=== PATIENT | male | born 1950 | race Two or more races ===

== ENCOUNTER 2020-10-20 15:08 | Inpatient (IN) | payer MEDICARE, BC ==
[~2020-10-20] VITALS: Ht 177.8 cm; Wt 74.1 kg
[2020-10-20 16:38] LABS: BASOPHILS # (AUTO) 0.1 X10'3 (0-0.2); BASOPHILS % (AUTO) 0.6 % (0-1); EOSINOPHILS # (AUTO) 0.1 X10'3 (0-0.9); EOSINOPHILS % (AUTO) 0.7 % (0-6); HEMATOCRIT 45.9 % (42.0-52.0); HEMOGLOBIN 15.7 g/dl (14.0-17.9); LYMPHOCYTES # (AUTO) 1.5 X10'3 (1.1-4.8); LYMPHOCYTES % (AUTO) 14.5 % (21-51); MEAN CORPUSCULAR HEMOGLOBIN 31.4 PG (27.0-31.0); MEAN CORPUSCULAR HGB CONC 34.3 g/dL (33.0-36.5); MEAN CORPUSCULAR VOLUME 91.6 FL (78-98); MONOCYTES # (AUTO) 0.9 X10'3 (0-0.9); MONOCYTES % (AUTO) 8.7 % (2-12); NEUTROPHILS # (AUTO) 7.9 X10'3 (1.8-7.7); NEUTROPHILS % (AUTO) 75.5 % (42-75); PLATELET COUNT 202 X10'3 (140-440); RED BLOOD COUNT 5.01 X10'6 (4.70-6.10); WHITE BLOOD COUNT 10.5 X10'3 (4.5-11.0)
[2020-10-20 16:55] LABS: ALANINE AMINOTRANSFERASE 22 U/L (12-78); ALBUMIN 3.7 G/DL (3.4-5.0); ALKALINE PHOSPHATASE 89 IU/L (46-116); ANION GAP 11 (8-16); ASPARTATE AMINO TRANSFERASE 17 U/L (10-37); BILIRUBIN,TOTAL 0.8 MG/DL (0.1-1.0); BLOOD UREA NITROGEN 15 MG/DL (7-18); BUN/CREATININE RATIO 15.8 (5.4-32.0); CALCIUM 8.8 MG/DL (8.5-10.1); CHLORIDE 103 MMOL/L (99-107); CREATININE 0.95 MG/DL (0.60-1.10); GLUCOSE 110 MG/DL (70-104); POTASSIUM 3.7 MMOL/L (3.5-5.1); SODIUM 140 MMOL/L (135-145); TOTAL CARBON DIOXIDE 25.6 MMOL/L (24-32); TOTAL PROTEIN 7.3 G/DL (6.4-8.2); eGFR 78 ML/MIN
[2020-10-20 16:59] LABS: LIPASE 98 U/L (73-393); MAGNESIUM 2.1 MG/DL (1.5-2.4)
[2020-10-20] MEDS ORDERED: heparin 25,000 UNIT/250ml bag 250 ML IV SCH (17:15)
[2020-10-20] MEDS ORDERED: heparin 10,000 units/1 ML INJ IV PRN (17:15)
[2020-10-20] MEDS ORDERED: heparin 10,000 units/1 ML INJ IV ONE ×2 (17:15)
[2020-10-20] MEDS ORDERED: aspirin 325mg tablet PO ONE (17:15)
[2020-10-20] MEDS ORDERED: iohexol 350MG/ML 100ml bottle IV ONE (17:29)
--- NOTE | 2020-10-20 17:35 | NUR ---
HOLDING HEPARIN UNTIL PTT RESULTS ARE COMPLETED PER COLE GONZALEZ
[2020-10-20 17:40] LABS: CLARITY,URINE CLEAR (Clear); COLOR,URINE YELLOW (Yellow); GLUCOSE, URINE NEGATIVE (Neg); KETONES,URINE NEGATIVE (Neg); LEUKOCYTE ESTERASE ,URINE NEGATIVE (Neg); NITRITES, URINE NEGATIVE (Neg); OCCULT BLOOD,URINE TRACE-INTACT (Neg); PH,URINE 6.5 (4.8-8.0); PROTEIN,URINE NEGATIVE (Neg); UROBILINOGEN,URINE 0.2 E.U/dL (0.2-1.0)
[2020-10-20 17:47] LABS: BACTERIA,URINE NONE SEEN /HPF (Neg); MUCUS STRANDS FEW /LPF (Neg); RBC,URINE 0-2 /HPF (0-2); SQUAMOUS EPITHELIAL CELL,UR FEW /LPF (FEW); UA COLLECTION TYPE VOIDED; WBC,URINE NONE SEEN /HPF (0-4)
[2020-10-20 17:57] LABS: D-DIMER < 0.19 MG/L FEU (0-0.50); PARTIAL THROMBOPLASTIN TIME 26 SECONDS (22-32)
[2020-10-20] MEDS ORDERED: DOXA2TAB46 PO (19:34)
[2020-10-20] MEDS ORDERED: ATOR10TA87 PO (19:36)
[2020-10-20] MEDS ORDERED: diphenhydrAMINE 50 mg/ml inj IV PRN (20:35)
[2020-10-20] MEDS ORDERED: diphenhydrAMINE 25mg capsule PO PRN (20:35)
[2020-10-20] MEDS ORDERED: HYDROcodone/acetaminophen 5mg/325mg tablet PO PRN (20:35)
[2020-10-20] MEDS ORDERED: ondansetron 4mg rapidly disintigrating tab PO PRN (20:35)
[2020-10-20] MEDS ORDERED: morphine 2 MG/ML inj. syringe IV PRN ×2 (20:35)
[2020-10-20] MEDS ORDERED: acetaminophen 325mg tablet PO PRN ×2 (20:35)
[2020-10-20] MEDS ORDERED: ondansetron/PF 4mg/2ml inj IV PRN (20:35)
[2020-10-20] MEDS ORDERED: bisacodyl 10mg suppository rectal RC PRN (20:35)
[2020-10-20] MEDS ORDERED: acetaminophen 650mg rectal suppository RC PRN (20:35)
[2020-10-20] MEDS ORDERED: magnesium hydroxide 30ml (MOM) UD suspension PO PRN (20:35)
[2020-10-20] MEDS ORDERED: mag hydrox/Alum hydrox/simeth 30ml oral suspension PO PRN (20:35)
[2020-10-20] MEDS ORDERED: dextrose 5%-1/2 normal saline 1,000 ML IV SCH (20:35)
[2020-10-20] MEDS ORDERED: temazepam 15mg capsule PO PRN (21:00)
[2020-10-20 21:59] LABS: HEMOGLOBIN A1C 5.5 % (4.5-6.2)
[2020-10-20] MEDS: metoprolol tartrate 50mg tablet PO SCH (22:29)
[2020-10-20 22:30] VITALS: BP 189/84
[2020-10-20] MEDS: lisinopril 20mg tablet PO SCH (22:30)
[2020-10-20 23:30] VITALS: BP 157/75
[2020-10-21 00:48] LABS: PHOSPHORUS 4.1 MG/DL (2.3-4.5)
[2020-10-21 03:00] VITALS: BP 116/62
[2020-10-21 05:56] LABS: BASOPHILS # (AUTO) 0.1 X10'3 (0-0.2); BASOPHILS % (AUTO) 0.8 % (0-1); EOSINOPHILS # (AUTO) 0.1 X10'3 (0-0.9); EOSINOPHILS % (AUTO) 1.4 % (0-6); HEMATOCRIT 45.2 % (42.0-52.0); HEMOGLOBIN 15.3 g/dl (14.0-17.9); LYMPHOCYTES # (AUTO) 1.5 X10'3 (1.1-4.8); LYMPHOCYTES % (AUTO) 16.9 % (21-51); MEAN CORPUSCULAR HEMOGLOBIN 31.3 PG (27.0-31.0); MEAN CORPUSCULAR HGB CONC 33.7 g/dL (33.0-36.5); MEAN CORPUSCULAR VOLUME 92.9 FL (78-98); MEAN PLATELET VOLUME 8.4 FL (7.4-10.4); MONOCYTES # (AUTO) 0.8 X10'3 (0-0.9); MONOCYTES % (AUTO) 9.5 % (2-12); NEUTROPHILS # (AUTO) 6.2 X10'3 (1.8-7.7); NEUTROPHILS % (AUTO) 71.4 % (42-75); PLATELET COUNT 191 X10'3 (140-440); RED BLOOD COUNT 4.87 X10'6 (4.70-6.10); RED CELL DISTRIBUTION WIDTH 13.1 % (11.5-14.5); WHITE BLOOD COUNT 8.7 X10'3 (4.5-11.0)
[2020-10-21 06:00] VITALS: BP 107/58
[2020-10-21 06:24] LABS: ALANINE AMINOTRANSFERASE 23 U/L (12-78); ALBUMIN 3.4 G/DL (3.4-5.0); ALKALINE PHOSPHATASE 81 IU/L (46-116); ANION GAP 7 (8-16); ASPARTATE AMINO TRANSFERASE 13 U/L (10-37); BILIRUBIN,TOTAL 1.1 MG/DL (0.1-1.0); BLOOD UREA NITROGEN 14 MG/DL (7-18); BUN/CREATININE RATIO 16.5 (5.4-32.0); CALCIUM 8.8 MG/DL (8.5-10.1); CHLORIDE 104 MMOL/L (99-107); CREATININE 0.85 MG/DL (0.60-1.10); GLUCOSE 119 MG/DL (70-104); POTASSIUM 3.9 MMOL/L (3.5-5.1); SODIUM 139 MMOL/L (135-145); TOTAL PROTEIN 6.9 G/DL (6.4-8.2); eGFR 89 ML/MIN
[2020-10-21 06:28] LABS: CHOL/HDL RATIO 2.6 (0.00-4.99); CHOLESTEROL 145 MG/DL (0-200); HDL CHOLESTEROL 55 MG/DL (35-60); LDL CHOLESTEROL 73 MG/DL (50-100); TRIGLYCERIDES 105 MG/DL (20-135)
--- NOTE | 2020-10-21 06:30 | NUR ---
Patient in room PCU 3026. I have received report from Angella VITAL and had the opportunity to ask questions and assume patient care.
[2020-10-21] MEDS ORDERED: doxazosin mesylate 2mg tablet PO SCH (08:00)
[2020-10-21] MEDS ORDERED: nitroGLYCERIN 0.4mg/hour patch TD SCH (08:00)
[2020-10-21] MEDS: docusate sod 100mg capsule PO SCH ×2 (09:40→20:33)
[2020-10-21] MEDS: aspirin 81mg tablet.DR PO SCH (09:41)
[2020-10-21] MEDS: metoprolol tartrate 50mg tablet PO SCH (09:41)
[2020-10-21] MEDS: lisinopril 20mg tablet PO SCH (09:42)
[2020-10-21] MEDS: pantoprazole 40mg Tablet.DR PO SCH (09:47)
[2020-10-21 11:00] VITALS: BP 90/50
--- NOTE | 2020-10-21 12:34 | NUR ---
Paged Dr. Barrientos regarding diet. PAGER ID: [phone] MESSAGE: [phone] Sathish Aguilar. Can I feed him? If so what diet? PCU Crystal
[2020-10-21] MEDS ORDERED: metoprolol tartrate 1mg/ml inj IV PRN (13:50)
[2020-10-21] MEDS ORDERED: temazepam 15mg capsule PO PRN (13:50)
[2020-10-21] MEDS ORDERED: regadenoson 0.4mg/5ml syringe IV ONE (13:50)
[2020-10-21] MEDS ORDERED: nitroGLYCERIN 0.4mg SUBLingual tab SL PRN (13:50)
[2020-10-21] MEDS ORDERED: LORazepam 0.5 MG tablet PO PRN (13:50)
[2020-10-21] MEDS ORDERED: aminophylline 250mg/10ml inj. IV PRN (13:50)
[2020-10-21 15:00] VITALS: BP 100/58
--- NOTE | 2020-10-21 16:00 | NUR ---
Paged Dr. Barrientos regarding low BP PAGER ID: [phone] MESSAGE: [phone] Sathish Aguilar. Patient BP was 61/34 MAP 43, 74/35 MAP 48. Then manual BP 100/58 MAP 73. Bolus 250ml and patient in trendelenberg. Should we reduce his Lopressor or take the nitroglycerin off? PCU Crystal
--- NOTE | 2020-10-21 16:00 | NUR ---
Bolused NS 250ML manual BP 108/62 MAP 77.
--- NOTE | 2020-10-21 16:05 | NUR ---
Lopressor discontinued and nitroglycerin is now sublingual, nitro patches are discontinued per Dr. Barrientos.
[2020-10-21 18:00] VITALS: BP 106/55
--- NOTE | 2020-10-21 18:30 | NUR ---
Problems reprioritized. Patient report given, questions answered & plan of care reviewed with Omi RN. Patient stable at transfer of care.
[2020-10-21 22:00] VITALS: BP 95/51
[2020-10-22] VITALS (11 sets, daily range): BP systolic 111–156; BP diastolic 49–63
[2020-10-22 06:36] LABS: BASOPHILS % (AUTO) 0.5 % (0-1); EOSINOPHILS # (AUTO) 0.1 X10'3 (0-0.9); EOSINOPHILS % (AUTO) 1.4 % (0-6); HEMOGLOBIN 14.4 g/dl (14.0-17.9); LYMPHOCYTES # (AUTO) 1.7 X10'3 (1.1-4.8); LYMPHOCYTES % (AUTO) 21.3 % (21-51); MEAN CORPUSCULAR HEMOGLOBIN 31.2 PG (27.0-31.0); MEAN CORPUSCULAR HGB CONC 33.6 g/dL (33.0-36.5); MEAN PLATELET VOLUME 8.5 FL (7.4-10.4); MONOCYTES # (AUTO) 0.9 X10'3 (0-0.9); MONOCYTES % (AUTO) 11.2 % (2-12); NEUTROPHILS # (AUTO) 5.4 X10'3 (1.8-7.7); NEUTROPHILS % (AUTO) 65.6 % (42-75); PLATELET COUNT 173 X10'3 (140-440); RED BLOOD COUNT 4.62 X10'6 (4.70-6.10); RED CELL DISTRIBUTION WIDTH 13.3 % (11.5-14.5); WHITE BLOOD COUNT 8.2 X10'3 (4.5-11.0)
--- NOTE | 2020-10-22 06:42 | NUR ---
Patient in room PCU 3026. I have received report from Omi VITAL and had the opportunity to ask questions and assume patient care.
[2020-10-22 07:09] LABS: ALANINE AMINOTRANSFERASE 14 U/L (12-78); ALBUMIN 3.1 G/DL (3.4-5.0); ALBUMIN/GLOBULIN RATIO 0.9 (1.1-1.5); ALKALINE PHOSPHATASE 73 IU/L (46-116); ANION GAP 7 (8-16); ASPARTATE AMINO TRANSFERASE 7 U/L (10-37); BILIRUBIN,TOTAL 0.9 MG/DL (0.1-1.0); BLOOD UREA NITROGEN 17 MG/DL (7-18); CALCIUM 8.1 MG/DL (8.5-10.1); CHLORIDE 107 MMOL/L (99-107); CREATININE 0.85 MG/DL (0.60-1.10); GLUCOSE 101 MG/DL (70-104); POTASSIUM 3.9 MMOL/L (3.5-5.1); SODIUM 142 MMOL/L (135-145); TOTAL CARBON DIOXIDE 28.2 MMOL/L (24-32); TOTAL PROTEIN 6.4 G/DL (6.4-8.2); eGFR 89 ML/MIN
[2020-10-22] MEDS ORDERED: atorvastatin 10mg tablet PO SCH (08:00)
[2020-10-22] MEDS: pantoprazole 40mg Tablet.DR PO SCH (08:13)
[2020-10-22] MEDS: docusate sod 100mg capsule PO SCH (08:13)
[2020-10-22] MEDS: aspirin 81mg tablet.DR PO SCH (08:14)
--- NOTE | 2020-10-22 11:22 | NUR ---
ID: [phone] MESSAGE: [email or web address], THE KO RESULT IS AVAILABLE FOR 3026B, THX
[2020-10-22] MEDS: normal saline 1000ml 1,000 ML IV SCH ×2 (11:46)
[2020-10-22] MEDS: lisinopril 20mg tablet PO SCH (11:47)
[2020-10-22] MEDS ORDERED: LISI40TA13 PO (12:31)
--- NOTE | 2020-10-22 14:12 | NUR ---
Patient safe for discharge per providers orders. Medication called into the pharmacy. Medications and discharge instructions discussed. PIV discontinued cannula intact. Wheeled to lobby by nurse. Patient left in private vehicle with spouse.
[2020-10-22] MEDS ORDERED: doxazosin mesylate 2mg tablet PO SCH (21:00)
[2020-10-23] MEDS ORDERED: atorvastatin 20mg tablet PO SCH (08:00)
--- NOTE | 2020-10-24 11:08 | NUR ---
CASE MANAGEMENT DISCHARGE FOLLOW UP: Spoke with pt via telephone. Reports that he is doing pretty good, recovering pretty good, got some rest last night, has been out for a couple of walks since discharge; denies CP, SOB. Verbalizes understanding of s/sx requiring further evaluation/emergent assistance. Verbalizes understanding of medications, took first dose of new medication this AM. Pt denies owning BP cuff, educated pt on s/sx of hypotension and when to contact MD, also how to protect himself if experiencing s/sx of hypotension including changing positions slowly, making sure he can grab onto something/lean against wall if necessary to prevent falls, and to get help, he verbalizes understanding. Advised pt that he can get a BP cuff OTC from any pharmacy if he is interested, he states that he will. Educated pt on taking BP, keeping a log, and when checking BP before taking BP medication if SBP less than 100 to hold off x1hr, recheck and if still less than 100 to hold medication and notify MD as medication may need to be adjusted, he verbalizes understanding. Educated pt that it is a lot of information and if he does require clarification/assistance he may call this nurse at her direct line (number provided), his PMD, as well as his pharmacist who is a good resource regarding medication, he verbalizes understanding. Verbalizes understanding of the importance in making/keeping follow-up appointments, states that he is in the process of getting new PMD, filling out paperwork for [facility], will turn it in. States no further questions/concerns at this time.
== END 2020-10-22 14:12 | disposition home or self-care (01) | DRG 641 ==
LOC: ER 15:09 → ED HOLD 20:34 → PCU 3S 21:40
PROVIDERS: ADMIT Family Medicine; ATTEND Family Medicine
PROC: B32T1ZZ Computerized Tomography (CT Scan) of Left Pulmonary Artery using Low Osmolar Contrast (ICD-10-PCS; principal; 2020-10-20)
PROC: B3201ZZ Computerized Tomography (CT Scan) of Thoracic Aorta using Low Osmolar Contrast (ICD-10-PCS; 2020-10-20)
PROC: B32S1ZZ Computerized Tomography (CT Scan) of Right Pulmonary Artery using Low Osmolar Contrast (ICD-10-PCS; 2020-10-20)
PROC: 4A02XM4 Measurement of Cardiac Total Activity, External Approach (ICD-10-PCS; 2020-10-22)
PROC: 3E073KZ Introduction of Other Diagnostic Substance into Coronary Artery, Percutaneous Approach (ICD-10-PCS; 2020-10-22)
DX: E86.0 Dehydration (principal); F41.1 Generalized anxiety disorder; R07.89 Other chest pain; E78.5 Hyperlipidemia, unspecified; R00.2 Palpitations; I10 Essential (primary) hypertension; J44.9 Chronic obstructive pulmonary disease, unspecified; N40.0 Benign prostatic hyperplasia without lower urinary tract symptoms; R09.02 Hypoxemia; F17.290 Nicotine dependence, other tobacco product, uncomplicated; Z20.822 Contact with and (suspected) exposure to COVID-19; Z79.899 Other long term (current) drug therapy; Z71.6 Tobacco abuse counseling
CPT/HCPCS: 36415; 71045; 71275; 78452; 80053; 80061; 81001; 83036; 83690; 83735; 83880; 84100; 84439; 84443; 84480; 84484; 85025; 85379; 85610; 85730; 87081; 87635; 93005; 93017; 93306; 96365; 96366; 99285; A9500; C9803; G0378; J1644; J2785; J7030; Q9967

== ENCOUNTER 2021-01-28 12:33 | Emergency (ER) | payer MEDICARE, BC ==
[~2021-01-28] VITALS: Ht 177.8 cm; Wt 74.1 kg
[~2021-01-28 12:33] MED LIST: ATOR10TA87 PO; DOXA2TAB46 PO
== END 2021-01-28 16:36 | disposition home or self-care (01) ==
LOC: ER 12:34
DX: R05 Cough (principal); Z20.822 Contact with and (suspected) exposure to COVID-19; Z79.899 Other long term (current) drug therapy
CPT/HCPCS: 36415; 99283; U0003; U0005